=== PATIENT | male | born 1950 | race Caucasian/White ===

== ENCOUNTER → 2020-07-05 | Outpatient (CLI) | payer MEDICARE, BC | LOC: ZLAB.ENT 16:32 | DX: H61.91 Disorder of right external ear, unspecified (principal) ==

== ENCOUNTER → 2021-07-18 | Outpatient (CLI) | payer MEDICARE, BC | LOC: ZCOL.LAB 17:46 | DX: H66.91 Otitis media, unspecified, right ear (principal) ==

== ENCOUNTER → 2021-11-07 | Outpatient (CLI) | payer MEDICARE, BC | LOC: ZCOL.LAB 15:48 | DX: H92.13 Otorrhea, bilateral (principal) ==

== ENCOUNTER 2022-11-26 09:28 | Day surgery (SDC) | payer MEDICARE, BC ==
[~2022-11-26] VITALS: Ht 170.2 cm; Wt 113.6 kg
[2022-11-26] VITALS (7 sets, daily range): BP systolic 122–155; BP diastolic 50–69; PULSE 77–84; TEMP 96.9–97.6
[2022-11-26] MEDS ORDERED: LIPITOR 80MG80 MG PO (10:59)
[2022-11-26] MEDS ORDERED: ASPIRIN E.C. 8181 MG PO (10:59)
[2022-11-26] MEDS ORDERED: PLAVIX 75MG TAB75 MG PO (11:06)
[2022-11-26] MEDS ORDERED: TOPROL XL200 MG PO (11:07)
[2022-11-26] MEDS ORDERED: PROCARDIA XL90 MG PO (11:07)
[2022-11-26] MEDS ORDERED: ZOLOFT 50MG50 MG PO (11:07)
[2022-11-26] MEDS ORDERED: IMDUR 60MG60 MG/TAB PO (11:08)
[2022-11-26] MEDS ORDERED: LASIX 40MG TABL40 MG PO (11:08)
[2022-11-26] MEDS ORDERED: CYMBALTA 60MG60 MG PO (11:09)
[2022-11-26] MEDS ORDERED: COZAAR 50MG50 MG/TAB PO (11:09)
[2022-11-26] MEDS ORDERED: VOLTAREN GEL 1%1 TU TP (11:13)
[2022-11-26] MEDS ORDERED: OZEMPIC0.25 MG/0. SQ (11:16)
[2022-11-26] MEDS ORDERED: REQUIP 1MG T1 MG/TAB PO (11:17)
[2022-11-26] MEDS ORDERED: TRESIBA FL200 UNIT/1 SQ (11:17)
[2022-11-26 11:34] LABS: CALCIUM 8.4 mg/dL (8.4-10.2); CREATININE, serum 4.87 mg/dL (0.72-1.25); POTASSIUM 3.6 mmol/L (3.5-4.5)
--- NOTE | 2022-11-26 15:33 | NUR ---
1513-DISCHARGE INSTRUCTIONS REVIEWED WITH PATIENT AND FAMILY MEMBER AT BEDSIDE, QUESTIONS INVITED 1515-PATIENT DISCHARGED TO HOME VIA WHEELCHAIR ACCOMPANIED BY FAMILY MEMBER. VSS, DENIES PAIN AT TIME OF DISCHARGE. ALL BELONGINGS SENT WITH PT.
--- NOTE | 2022-11-26 19:16 | NUR ---
[id number]: PT TO RECOVERY BAY 5 FROM PACU S/P BONE ANCHORED HEARING AID A&O, PLACED ON MONITOR, VSS ON RA RECEIVED REPORT AND ASSUMED CARE OF PT FROM OMEGA LEA BROUGHT TO BEDSIDE PROVIDED JELLO AND WATER REQUESTED, TOLERATING WELL SMALL SCRATCH ON R SHOULDER CLEANSED AND DRESSED ASSISTED TO BR IN WC AND BACK TO BED, STEADY TRANSFER (BASELINE AMBULATION IS WITH WALKER, WHICH IS AT HOME) PORTACATH FLUSHED, HEP LOCKED, AND DC'D PRIOR TO DC, ONCE TOLERATING PO WELL PT/FAMILY ED ON WOUND CARE AND HEMOSTASIS (PT ON THINNERS, INJURES EASILY) PT HAS REMAINED A&O, NAD, VSS ON RA, TOLERATING PO, IS WITHOUT SIGNIFICANT COMPLAINT, WITH STEADY TRANSFER THRU OUT STAY D/C INSTRUCTIONS, ANY FOLLOW UP REVIEWED AND HANDED TO PT. ALL QUESTIONS AND CONCERNS ADDRESSED TO PT SATISFACTION. TAKEN TO EXIT VIA W/C WITH ALL BELONGINGS AND PAPERWORK IN HAND, ASSISTED INTO PASSENGER SEAT OF POV. TO DRIVE HOME.
== END 2022-11-26 15:15 | disposition home or self-care (01) ==
LOC: SDCO 09:28
PROVIDERS: Registered Nurse
DX: H90.A32 Mixed conductive and sensorineural hearing loss, unilateral, left ear with restricted hearing on the contralateral side (principal); H90.A31 Mixed conductive and sensorineural hearing loss, unilateral, right ear with restricted hearing on the contralateral side; B36.9 Superficial mycosis, unspecified; H62.42 Otitis externa in other diseases classified elsewhere, left ear; G47.33 Obstructive sleep apnea (adult) (pediatric); E11.9 Type 2 diabetes mellitus without complications; Z85.72 Personal history of non-Hodgkin lymphomas; Z79.85 Long-term (current) use of injectable non-insulin antidiabetic drugs; Z79.4 Long term (current) use of insulin
CPT/HCPCS: J0690; J1100; J1644; J2370; J2405; J2704; J3010; L8619; L8690